=== PATIENT | male | born 1985 | race Caucasian/White ===

== ENCOUNTER 2020-03-21 15:01 | Emergency (ER) | payer SELFPAY ==
[2020-03-21] MEDS ORDERED: HYDROmorphone 1 MG/ML CARPUJECT IVP STA ×2 (15:27→16:13)
[2020-03-21] MEDS ORDERED: ONDANSETRON 4 MG/2 ML VIAL IVP STA (15:27)
[2020-03-21] MEDS ORDERED: SODIUM CHLORIDE 0.9% 1,000 ML IV STA (15:27)
--- NOTE | 2020-03-21 15:31 | ED Physician Documentation ---
PD HPI ABD PAIN - Stated complaint Stated Complaint: DIARRIAH, BACK PX - Chief complaint Chief Complaint: Abd Pain - History obtained from History obtained from: Patient - Additional information Additional information: Otherwise healthy 34-year-old gentleman has had diarrhea with a small amount of blood and chills for the last 2 days and then suddenly half an hour ago developed lower abdominal and right flank pain with nausea. No sick contacts or recent travel noting that he does work at a chicken farm though. No recent antibiotics. No history of abdominal surgeries. Review of Systems Ten Systems: 10 systems reviewed and negative Constitutional: reports: Reviewed and negative Nose: reports: Reviewed and negative Throat: reports: Reviewed and negative PD PAST MEDICAL HISTORY - Present Medications Home Medications: Ambulatory Orders Medication Instructions Recorded Confirmed Ondansetron Odt [Zofran] 4 mg TL Q6H PRN #10 tablet 03/21/20 Oxycodone HCl/Acetaminophen 1 - 2 each PO Q6H PRN #14 tablet 03/21/20 [Percocet 5-325 mg Tablet] Tamsulosin [Flomax] 0.4 mg PO DAILY #14 capsule 03/21/20 - Allergies Allergies/Adverse Reactions: Allergies Allergy/AdvReac Type Severity Reaction Status Date / Time No Known Drug Allergies Allergy Verified 03/21/20 15:15 PD ED PE NORMAL - Vitals Vital signs reviewed: Yes - General General: Alert and oriented X 3 (He looks uncomfortable) - HEENT HEENT: PERRL, EOMI - Neck Neck: Supple, no meningeal sign, No bony TTP - Cardiac Cardiac: RRR, No murmur - Respiratory Respiratory: No respiratory distress, Clear bilaterally - Abdomen Abdomen: Other (Mild lower abdominal tenderness that does not seem to lateralize, no surgical signs. He claims right CVA tenderness but does not actually wince or make any reaction when testing it.) - Derm Derm: Normal color, Warm and dry - Extremities Extremities: No edema, No calf tenderness / cord - Neuro Neuro: Alert and oriented X 3, Normal speech Results - Vitals Vitals: Vital Signs - 24 hr 03/21/20 03/21/20 03/21/20 15:15 15:45 16:28 Temperature 37.2 C Heart Rate 96 82 80 Respiratory 18 14 15 Rate Blood Pressure 136/87 H 136/101 H 136/97 H O2 Saturation 100 94 95 Oxygen O2 Source Room air - Labs Labs: Laboratory Tests 03/21/20 03/21/20 15:32 15:32 WBC 9.6 RBC 5.08 Hgb 16.4 Hct 49.2 MCV 96.9 H MCH 32.3 H MCHC 33.3 RDW 13.7 Plt Count 195 MPV 10.7 Neut # (Auto) 7.4 H Lymph # (Auto) 1.3 L [place] # (Auto) 0.9 Eos # (Auto) 0.0 Baso # (Auto) 0.0 Absolute Nucleated RBC 0.00 Nucleated RBC % 0.0 Sodium 138 Potassium 3.8 Chloride 99 L Carbon Dioxide 26 Anion Gap 13.0 BUN 10 Creatinine 1.4 H Estimated GFR (MDRD) 58 L Glucose 106 H Calcium 9.3 Total Bilirubin 0.8 AST 17 ALT 16 Alkaline Phosphatase 68 Total Protein 7.7 Albumin 4.2 Globulin 3.5 Albumin/Globulin Ratio 1.2 Lipase 45 - Rads (name of study) CT A/P Radiology: EMP read contemporaneously (Right UVJ stone 3 mm with obstruction, 4 mm R nephrolith) PD MEDICAL DECISION MAKING - ED course ED course: 34-year-old gentleman with a couple days of diarrhea now severe right-sided abdominal and back pain. CT imaging demonstrates a right ureterolith which is causative. Consideration was given to getting a stool sample given his diarrhea, that said that seems like a minor issue compared to the kidney stone and he was unable to have a bowel movement here anyway. Pain improved significantly with divided doses of medications here and looking much more comfortable prior to discharge. Departure - Departure Disposition: 01 Home, Self Care Clinical Impression: Renal colic Condition: Good Record reviewed to determine appropriate education?: Yes Instructions: ED Stone Renal W Colic Follow-Up: Mauricio Eldridge MD [Provider Admit Priv/Credential] - Prescriptions: Tamsulosin [Flomax] 0.4 mg PO DAILY #14 capsule Oxycodone HCl/Acetaminophen [Percocet 5-325 mg Tablet] 1 - 2 each PO Q6H PRN #14 tablet PRN Reason: pain Ondansetron Odt [Zofran] 4 mg TL Q6H PRN #10 tablet PRN Reason: Nausea / Vomiting Comments: You are seen today for right-sided abdominal and back pain which is from a 3 mm stone in the right ureter. This is small enough that it is unlikely you will need to see a urologist in follow-up but if still in pain over the next few days you can call the 1 listed on this form to arrange for follow-up. Use the urine strainers and if you catch any material you can present to your physician for consideration for testing to see what your kidney stone is made out of. Return if worsening. Do not drink or drive while taking narcotic pain medication. Note that many narcotic pain relievers also contain Tylenol/acetaminophen. Please ensure that your total dose of acetaminophen from all sources does not exceed 3 g (3000 mg) per day. You may get constipated while on this medication. Take a stool softener such as Colace twice a day while you are on it. Also add an [id number] laxative such as senna or MiraLAX on any day that you do not have a bowel movement. If you received a narcotic pain medication or sedative while in the emergency department, do not drive for the next 24 hours.
[2020-03-21 15:39] LABS: BASOPHILS % (AUTO) 0.4 %; EOSINOPHILS % (AUTO) 0.3 %; HGB - HEMOGLOBIN 16.4 g/dL (14.0-18.0); LYMPHOCYTES # (AUTO) 1.3 10^3/uL (1.5-3.5); LYMPHOCYTES % (AUTO) 13.1 %; MEAN CORPUSCULAR HEMOGLOBIN 32.3 pg (27.0-31.0); MEAN CORPUSCULAR HGB CONC 33.3 g/dL (32.0-36.0); MEAN CORPUSCULAR VOLUME 96.9 fL (80.0-94.0); MEAN PLATELET VOLUME 10.7 fL (7.4-11.4); MONOCYTES # (AUTO) 0.9 10^3/uL (0.0-1.0); NEUTROPHILS # (AUTO) 7.4 10^3/uL (1.5-6.6); NEUTROPHILS % (AUTO) 76.9 %; PLT - PLATELET COUNT 195 10^3/uL (130-450); RED BLOOD COUNT 5.08 10^6/uL (4.70-6.10); RED CELL DISTRIBUTION WIDTH 13.7 % (12.0-15.0); WHITE BLOOD COUNT 9.6 x10^3/uL (4.8-10.8)
[2020-03-21 15:50] LABS: ALBUMIN 4.2 g/dL (3.2-5.5); ALBUMIN/GLOBULIN RATIO 1.2 (1.0-2.2); BILIRUBIN,TOTAL 0.8 mg/dL (0.2-1.0); CALCIUM 9.3 mg/dL (8.5-10.3); CREATININE 1.4 mg/dL (0.6-1.2); TOTAL PROTEIN 7.7 g/dL (6.7-8.2)
[2020-03-21] MEDS ORDERED: IOVERSOL 320 100 ML VIAL IVP ONE ×2 (16:03→16:18)
[2020-03-21] MEDS ORDERED: METOCLOPRAMIDE 10 MG/2 ML VIAL IVP STA (16:13)
[2020-03-21] MEDS ORDERED: KETOROLAC 30 MG/ML VIAL IVP STA (16:13)
--- NOTE | 2020-03-21 16:19 | CT Report ---
PROCEDURE: Abdomen/Pelvis W INDICATIONS: IV only, R flank, low abd pain CONTRAST: IV CONTRAST: Optiray 320 ml: 100 PO CONTRAST: *NO PO CONTRAST TECHNIQUE: After the administration of nonionic IV contrast, 5 mm thick sections acquired from the diaphragms to the symphysis. 5 mm thick coronal and sagittal reformats were acquired. For radiation dose reducti on, the following was used: automated exposure control, adjustment of mA and/or kV according to garcia ent size. COMPARISON: None. FINDINGS: Image quality: Excellent. ABDOMEN: Lung bases: Lung bases are clear. Heart size is normal. Solid organs: Liver demonstrates normal size. Mild fatty liver infiltration can be seen. The spleen d emonstrates normal size. Along the posterior aspect of the spleen, there is apparent cystic lesion me asuring 1.2 cm, as on series 3 image 32. Gallbladder wall does not appear thickened. Biliary syste m is non dilated. Pancreas enhances normally. No adrenal nodules. There is a 3 mm stone, as on series 3 image 86. There is associated right-sided hydronephrosis and hy droureter. There is a nonobstructing stone seen within the right kidney, as on series 3 image 22 that measures up to 4 mm. The kidneys demonstrate normal size and enhance symmetrically. Peritoneum and bowel: Bowel loops demonstrate normal wall thickness and caliber. No free fluid or a ir. A normal appendix is incidentally noted. Nodes and vessels: No retroperitoneal or mesenteric adenopathy by size criteria. Aorta and inferior vena cava are normal in size. Miscellaneous: No ventral hernias. PELVIS: Genitourinary: Bladder wall thickness is normal. Miscellaneous: No inguinal hernias or adenopathy. Bones: No suspicious bony lesions. No vertebral body compression fractures. IMPRESSION: There is an obstructing stone seen within the right ureterovesicular junction measuring 3 mm, with as sociated right-sided hydroureter and hydronephrosis.. Nonobstructing 4 mm right-sided kidney stone. Reviewed by: Zay Chaidez MD on 03/21/2020 3:18 PM [place] Approved by: Zay Chaidez MD on 03/21/2020 3:18 PM [facility] Station ID: [id number]
[2020-03-21 16:29] VITALS: BP 136/97
== END 2020-03-21 17:04 | disposition home or self-care (01) ==
LOC: ED 15:01
DX: N13.2 Hydronephrosis with renal and ureteral calculous obstruction (principal); R19.7 Diarrhea, unspecified
CPT/HCPCS: 36415; 74177; 80053; 83690; 85025; 96361; 96374; 96375; 96376; 99284; J1170; J2765; Q9967